=== PATIENT | male | born 1995 | race Two or more races ===

== ENCOUNTER 2017-04-08 21:01 | Emergency (ER) | payer SELFPAY ==
[~2017-04-08] VITALS: Ht 180.3 cm; Wt 63.5 kg
[2017-04-08 22:31] VITALS: BP 106/82
[2017-04-08] MEDS ORDERED: LIDOCAINE 1% HCL (LOCAL ANESTH.) INJ 20ML MDV ONE (22:45)
[2017-04-08] MEDS ORDERED: LIDOCAINE 1% HCL (LOCAL ANESTH.) INJ 20ML MDV IJ ONE (22:45)
[2017-04-09] MEDS ORDERED: IBUPROFEN 600 MG TAB PO ONE (00:15)
== END 2017-04-09 00:44 | disposition home or self-care (01) ==
LOC: ER 21:01
DX: S63.114A Dislocation of metacarpophalangeal joint of right thumb, initial encounter (principal); W22.8XXA Striking against or struck by other objects, initial encounter; Y93.67 Activity, basketball; Y92.89 Other specified places as the place of occurrence of the external cause; Y99.8 Other external cause status
CPT/HCPCS: 26770; 73140; 99284; J2001

== ENCOUNTER 2020-12-17 16:32 | Emergency (ER) | payer MEDICAID ==
[~2020-12-17] VITALS: Ht 180.3 cm; Wt 72.6 kg
[2020-12-17 17:55] VITALS: BP 120/81
[2020-12-17] MEDS ORDERED: ACETAMINOPHEN/CODEINE#3 (300/30mg) TAB PO ONE (18:00)
[2020-12-17] MEDS ORDERED: ONDANSETRON ODT 4 MG TAB PO ONE (18:00)
== END 2020-12-17 18:36 | disposition home or self-care (01) ==
LOC: ER 16:32
DX: S92.355A Nondisplaced fracture of fifth metatarsal bone, left foot, initial encounter for closed fracture (principal); W01.0XXA Fall on same level from slipping, tripping and stumbling without subsequent striking against object, initial encounter; Y93.67 Activity, basketball; Y92.89 Other specified places as the place of occurrence of the external cause; Y99.8 Other external cause status
CPT/HCPCS: 29515; 73630; 99283; Q0162